=== PATIENT | female | born 1995 | race Caucasian/White ===

== ENCOUNTER → 2017-07-31 13:09 | Outpatient (CLI) | payer OTHER, SELFPAY ==
[2017-07-31 16:09] LABS: Hematocrit 37.5 % (37-47); Hemoglobin 11.4 g/dl (12.0-15.0); Mean Corp Hgb Conc 30.4 g/gl (32-36); Mean Corpuscular Hgb 24.3 pg (27.0-32.0); Mean Platelet Vol. 10.3 fl (6.2-12.0); Platelet Count 387 K/mm3 (150-450); RBC Distribution Width CV 14.5 % (11.6-14.6); Red Blood Count 4.69 M/mm3 (4.2-5.4); White Blood Count 7.9 K/mm3 (4.4-11.0)
[2017-07-31 16:11] LABS: Scan Indicated on CBC? Y/N NO
[2017-07-31 16:24] LABS: hCG Titer Quant., Serum < 1 mIU/mL (<9 non-preg)
[2017-07-31 16:26] LABS: Hemoglobin A1c 4.8 % (4.2-6.3)
[2017-07-31 17:13] LABS: Estradiol 54.5 pg/mL; Follicle Stimulating Hormone 6.8 mIU/mL; Free T3 3.1 pg/mL (2.18-3.98); Luteinizing Hormone 4.3 mIU/mL; T4 Free Direct 0.95 ng/dL (0.76-1.46); Thyroid Stim Hormone (TSH) 1.31 uIU/mL (0.358-3.74)
[2017-08-06 12:14] LABS: HPV Reflexed? NOT INDICATED
== END ==
PROVIDERS: Visit Provider Obstetrics & Gynecology
DX: N92.6 Irregular menstruation, unspecified (principal); Z12.4 Encounter for screening for malignant neoplasm of cervix
CPT/HCPCS: 36415; 82670; 83001; 83002; 83036; 84144; 84403; 84439; 84443; 84481; 84702; 85027; 88175; G0145